=== PATIENT | male | born 1945 | race Caucasian/White ===

== ENCOUNTER → 2019-08-22 | Outpatient (CLI) | payer OTHER | END | disposition home or self-care (01) | LOC: PCVCCLINIC 15:30 | PROVIDERS: ATTEND Internal Medicine | DX: I10 Essential (primary) hypertension (principal); I48.91 Unspecified atrial fibrillation; E78.5 Hyperlipidemia, unspecified; N40.0 Benign prostatic hyperplasia without lower urinary tract symptoms; E78.00 Pure hypercholesterolemia, unspecified; Z79.82 Long term (current) use of aspirin; Z87.891 Personal history of nicotine dependence | CPT/HCPCS: 36415; 80061; 93005; G0463 ==

== ENCOUNTER → 2019-09-26 | Outpatient (CLI) | payer OTHER ==
[~2019-09-26] MED LIST: ASPI325T8 PO; ATOR40TA59 PO; LISI10TA2 PO; METO-313 PO; TERA5CAP3 PO
--- NOTE | 2019-09-26 10:24 | PCVCIMAG ---
APPROVED REPORT Study performed: 09/26/2019 08:18:56 EXAM: Comprehensive 2D, Doppler, and color-flow Echocardiogram Patient Location: Echo lab Status: routine BSA: 2.15 HR: 58 bpmBP: 180/80 mmHg Rhythm: NSR Other Information Study Quality: Good Risk Factors: Cardiac Risk Factors: HTN, Hyperlipidemia Indications Atrial Fibrillation 2D Dimensions IVSd: 8.73 (7-11mm)LVOT Diam: 18.81 (18-24mm) LVDd: 44.28 mm PWd: 9.81 (7-11mm)Ascending Ao: 34.63 (22-36mm) LVDs: 27.73 (25-40mm) Left Atrium: 42.10 (27-40mm) Aortic Root: 29.51 mm LV Single Plane 4CH: 70.88 % LV Single Plane 2CH: 67.99 % Biplane EF: 69.8 % Volumes Left Atrial Volume (Systole) Single Plane 4CH: 63.28 mLSingle Plane 2CH: 80.19 mL LA ESV Index: 34.00 mL/m2 Aortic Valve AoV Peak Eliel.: 1.55 m/s AO Peak Gr.: 9.60 mmHgLVOT Max P.90 mmHg LVOT Max V: 1.49 m/s JASON Vmax: 2.67 cm2 Mitral Valve E/A Ratio: 1.0 MV Decel. Time: 201.67 ms MV E Max Eliel.: 0.92 m/s MV A Eliel.: 0.89 m/s TDI E/Lateral E': 7.08E/Medial E': 10.22 Medial E' Eliel.: 0.09 m/s Lateral E' Eliel.: 0.13 m/s Pulmonary Valve PV Peak Gr.: 4.27 mmHg Pulmonary Vein P Vein S: 0.73 m/sP Vein A: 0.37 m/s P Vein D: 0.54 m/sP Vein A Dur.: 100.3 msec P Vein S/D Ratio: 1.35 Tricuspid Valve TR Peak Eliel.: 2.52 m/s TR Peak Gr.: 25.47 mmHg Left Ventricle The left ventricle is normal size. There is normal LV segmental wall motion. There is normal left ventricular wall thickness. Left ventricular systolic function is normal. The left ventricular ejection fraction is within the normal range. LVEF is 65-70%. Right Ventricle The right ventricle is normal size. The right ventricular systolic function is normal. Atria Left atrium is borderline dilated. The right atrium size is normal. Aortic Valve The aortic valve is normal in structure. No aortic regurgitation is present. There is no aortic valvular stenosis. Mitral Valve The mitral valve is normal in structure. Trace to mild mitral regurgitation. No evidence of mitral valve stenosis. Tricuspid Valve The tricuspid valve is normal in structure. Trace tricuspid regurgitation. Pulmonarty artery pressuer is 33mmhg. Pulmonic Valve The pulmonary valve is normal in structure. Trace pulmonic regurgitation. Great Vessels The aortic root is normal in size. IVC is normal in size and collapses >50% with inspiration. Pericardium There is no pericardial effusion. <Conclusion> The left ventricle is normal size. LVEF is 65-70%. Left atrium is borderline dilated. The aortic valve is normal in structure. The mitral valve is normal in structure. Trace to mild mitral regurgitation. The tricuspid valve is normal in structure. Trace tricuspid regurgitation. Pulmonarty artery pressuer is 33mmhg. The pulmonary valve is normal in structure. Trace pulmonic regurgitation. There is no pericardial effusion.
== END | disposition home or self-care (01) ==
LOC: PCVCIMAG 08:08
PROVIDERS: ATTEND Internal Medicine
DX: I34.0 Nonrheumatic mitral (valve) insufficiency (principal); I48.91 Unspecified atrial fibrillation; I10 Essential (primary) hypertension; E78.00 Pure hypercholesterolemia, unspecified; Z87.891 Personal history of nicotine dependence
CPT/HCPCS: 93306

== ENCOUNTER 2019-09-28 06:52 | Outpatient (CLI) | payer OTHER ==
[~2019-09-28] VITALS: Ht 180.3 cm; Wt 95.3 kg
[2019-09-28 07:29] VITALS: BP 178/73
[2019-09-28] MEDS ORDERED: LIDOCAINE 2%/EPI 1:100,000 20 ML VIAL. ONE (07:37)
[2019-09-28 07:40] LABS: HEMATOCRIT 44.9 % (39.0-53.0); HEMOGLOBIN 15.1 g/dL (13.0-17.5); RED BLOOD COUNT 4.86 x10^6/uL (4.30-5.70); RED CELL DISTRIBUTION WIDTH 13.3 % (11.5-14.5); WHITE BLOOD COUNT 4.8 x10^3/uL (4.0-11.0)
[2019-09-28] MEDS ORDERED: TERA5CAP3 PO (07:45)
[2019-09-28] MEDS ORDERED: ASPI325T8 PO (07:45)
[2019-09-28] MEDS ORDERED: METO-313 PO (07:45)
[2019-09-28] MEDS ORDERED: LISI10TA2 PO (07:45)
[2019-09-28] MEDS ORDERED: ATOR40TA59 PO (07:45)
[2019-09-28 07:47] LABS: CALCIUM 8.8 mg/dL (8.5-10.1); GFR 72.6; POTASSIUM 3.6 mmol/L (3.5-5.1)
[2019-09-28 07:49] LABS: PROTHROMBIN TIME PATIENT 13.4 SEC (11.7-14.0)
[2019-09-28] MEDS ORDERED: LIDOCAINE 2%/EPI 1:100,000 20 ML VIAL. IJ ONE (09:30)
--- NOTE | 2019-09-28 10:12 | NUR ---
Discharge Note: [facility] Discharge instructions and discharge home medications reviewed with Family Member and a copy given. All questions have been answered and understanding verbalized. No sedation this visit. The following instructions and handouts were given: Incision care. Discontinued lines and drains: No IV for this visit. Patient discharged to home with son via private vehicle.
--- NOTE | 2019-10-10 11:42 | CARD ---
MR#: [id number] Date of Study: 09/28/2019 Ordering Physician: JOS SOLANO, Referring Physician: JOS SOLANO, Tech: APPROVED REPORT EXAM Confirm RX Ref: [id number] SN: [id number] HISTORY The Patient is a 74 year-old male with a history of paroxysmal atrial fibrillation INDICATIONS 74 year old male patient with history of atrial fibrillation but no documentation. Studies obtained t o document to initiate appropriate guidelines directed therapy IMPLANTED DEVICES [employer] implantable loop recorder serial number [id number] PROCEDURE After explaining the risks, benefits, and alternative options, informed consent was obtained from the patient. The patient was brought to the cardiac catheterization lab and the left chest and shoulder were prepp ed and draped in the usual fashion. During this case, Fluoroscopy was not used and contrast was not were used for imaging. COMPLICATIONS No complications were noted CONCLUSION 1. Successful implantation of a [employer] implantable loop recorder in the left chest under local an esthetic which was instilled throughout the projected deployment tract. Standard protocol using intro duction device was performed. Subcutaneous tissue was closed with a 3-0 suture and the skin was close d with a running subcuticular 30 absorbable stitch. Steri-Strips 4 x 4 and OpSite were utilized RECOMMENDATIONS 1. Routine post loop recorder implantation protocol Signed by : Jos Solano, Electronically Approved : 10/10/2019 11:42:10
== END 2019-09-28 10:10 | disposition home or self-care (01) ==
LOC: CCL 06:52
PROVIDERS: ATTEND Internal Medicine
DX: Z45.09 Encounter for adjustment and management of other cardiac device (principal); I48.0 Paroxysmal atrial fibrillation
CPT/HCPCS: 33285; 36415; 80048; 85027; 85610; C1764; J3490; 33282